=== PATIENT | male | born 1980 | race Caucasian/White ===

== ENCOUNTER 2016-08-21 18:05 | Emergency (ER) | payer MEDICAID ==
[~2016-08-21] VITALS: Ht 160 cm; Wt 82.5 kg
[2016-08-21 18:08] VITALS: Ht 160 cm; Wt 82.5 kg
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
--- NOTE | 2016-08-21 20:54 | RADRPT ---
PROCEDURE: Chest Radiograph. CLINICAL INDICATION: Cough. Shortness of breath. TECHNIQUE: Single frontal chest radiograph. COMPARISON: None available FINDINGS: The cardiomediastinal silhouette is within normal limits. No infiltrate or effusion is seen. Th e bones are intact. IMPRESSION: 1. Unremarkable chest radiograph. RPTAT: HJBF .Vaibhav Perez MD, MD Date Time Electronically viewed and signed by .Vaibhav Perez MD, on 08/21/2016 20:53 .B/
[2016-08-21] MEDS ORDERED: IBUP-1542 PO (21:05)
[2016-08-21] MEDS ORDERED: AZIT250T94 PO (21:05)
[2016-08-21] MEDS ORDERED: ALBU8.5H3 INH (21:05)
[2016-08-21] MEDS ORDERED: GUAI473L22 PO (21:05)
[2016-08-21] MEDS ORDERED: CETI10CA PO (21:05)
[2016-08-21 21:30] VITALS: BP 145/90; PULSE 62; RESP 18; TEMP 97.7
== END 2016-08-21 21:31 | disposition home or self-care (01) ==
LOC: FTE 18:05
DX: J20.9 Acute bronchitis, unspecified (principal); Z77.098 Contact with and (suspected) exposure to other hazardous, chiefly nonmedicinal, chemicals
CPT/HCPCS: 71010; Z7502